=== PATIENT | male | born 1985 | race African-American/Black ===

== ENCOUNTER 2019-04-15 13:56 | Emergency (ER) | payer OTHER ==
[2019-04-15] MEDS ORDERED: Acetaminophen 500 MG TAB ONE (14:50)
[2019-04-15 15:06] LABS: Anion Gap 11 mmol/L (10-20); BUN (Urea Nitrogen) 12 mg/dL (8.9-20.6); Calc. Creatinine Clearance 0 mL/min (70-130); Calcium 9.2 mg/dL (7.8-10.44); Carbon Dioxide 26 mmol/L (22-29); Chloride 108 mmol/L (98-107); Estimated GFR-MDRD Greater than 90; Glucose 83 mg/dL (70-105); Potassium 3.7 mmol/L (3.5-5.1); Sodium 141 mmol/L (136-145)
--- NOTE | 2019-04-19 11:02 | EKG ---
Test Reason : Blood Pressure : / mmHG Vent. Rate : 065 BPM Atrial Rate : 065 BPM P-R Int : 154 ms QRS Dur : 088 ms QT Int : 388 ms P-R-T Axes : 000 151 161 degrees QTc Int : 403 ms Normal sinus rhythm Right axis deviation Nonspecific ST and T wave abnormality Abnormal ECG Confirmed by ANAND MEDELLIN ([id number]), video editor JAIDA CURTIS ([id number]) on 04/19/2019 11:01:33 AM Referred By: Confirmed By:ANAND MEDELLIN
== END 2019-04-15 16:11 | disposition home or self-care (01) ==
LOC: ERS 13:56
DX: G40.909 Epilepsy, unspecified, not intractable, without status epilepticus (principal); E86.0 Dehydration; F41.9 Anxiety disorder, unspecified; F31.9 Bipolar disorder, unspecified; Z79.899 Other long term (current) drug therapy
CPT/HCPCS: 36415; 80048; 93005; 96360

== ENCOUNTER 2020-02-19 10:50 | Emergency (ER) | payer OTHER | END 2020-02-19 11:26 | disposition home or self-care (01) | LOC: ERS 10:50 | DX: M79.89 Other specified soft tissue disorders (principal); F41.9 Anxiety disorder, unspecified; F31.9 Bipolar disorder, unspecified; G40.909 Epilepsy, unspecified, not intractable, without status epilepticus | CPT/HCPCS: 99283 ==

== ENCOUNTER 2021-09-30 14:19 | Inpatient (IN) | payer OTHER ==
[~2021-09-30 14:19] MED LIST: ISOVUE-370 76%-LOCM 1 ML ONE
[2021-09-30 14:40] LABS: #Basophils 0.1 thou/uL (0.0-0.2); #Eosinphils 0.1 thou/uL (0.0-0.7); #Lymphocytes 3.4 thou/uL (1.20-3.40); #Monocytes 0.7 thou/uL (0.11-0.59); %Basophils 0.8 % (0.0-1.0); %Eosinophils 1.2 % (0.0-10.0); %Lymphocytes 36.2 % (21.0-51.0); %Monocytes 7.8 % (0.0-10.0); %Neutrophils 53.9 % (42.0-75.0); Hemoglobin 13.8 g/dL (14.0-18.0); Mean Corpuscular HGB CONC 34.1 g/dL (32.0-36.0); Mean Corpuscular Hemoglobin 32.6 pg (27.0-31.0); Mean Corpuscular Volume 95.4 fL (78.0-98.0); Mean Platelet Volume 8.1 fL (7.4-10.4); Platelet Count 229 thou/uL (130-400); RBC Distribution Width 10.9 % (11.5-14.5); Red Blood Cell (RBC) Count 4.24 mill/uL (4.70-6.10); White Blood Cell (WBC) Count 9.3 thou/uL (4.8-10.8)
[2021-09-30] MEDS ORDERED: Fentanyl 100 MCG/2 ML VIAL ONE ×2 (14:41→16:42)
[2021-09-30 15:08] LABS: Acetaminophen Less than 6.0 mcg/mL (10.0-30.0); Alcohol Less than 10 mg/dL (Less than 10); Salicylate Less than 8.0 mg/dL (15.0-30.0)
[2021-09-30] MEDS ORDERED: TETANUS AND DIPHTHERIA TOX/PF 0.5 ML DISP.SYRIN IM ONE (15:10)
[2021-09-30] MEDS ORDERED: Ondansetron PF 4 MG/2 ML Vial IVP PRN (15:10)
[2021-09-30] MEDS ORDERED: Promethazine HCl 25 MG/ML VIAL IM PRN (15:10)
[2021-09-30] MEDS ORDERED: hydrALAZINE 20 MG/ML VIAL SLOW IVP PRN (15:10)
[2021-09-30 15:11] LABS: ALT (SGPT) 33 U/L (8-55); AST (SGOT) 30 U/L (5-34); Albumin 4.1 g/dL (3.5-5.0); Alkaline Phosphatase 56 U/L (40-110); Anion Gap 13 mmol/L (10-20); BUN (Urea Nitrogen) 12 mg/dL (8.9-20.6); Bilirubin, Total 0.4 mg/dL (0.2-1.2); Calc. Creatinine Clearance 0 mL/min (70-130); Calcium 9.4 mg/dL (7.8-10.44); Carbon Dioxide 24 mmol/L (22-29); Chloride 106 mmol/L (98-107); Globulin 3.5 g/dL (2.4-3.5); Glucose 117 mg/dL (70-105); Potassium 3.7 mmol/L (3.5-5.1); Protein, Total 7.6 g/dL (6.0-8.3); Sodium 139 mmol/L (136-145)
[2021-09-30] MEDS ORDERED: Cyclobenzaprine 10 MG TAB PO PRN (15:13)
[2021-09-30] MEDS ORDERED: Morphine 4 MG/ML VIAL ONE (16:00)
[2021-09-30] MEDS ORDERED: levETIRAcetam in NS 1,000 MG in Premix Bag 1 BAG IVPB SCH (16:15)
[2021-09-30] MEDS ORDERED: levETIRAcetam in NS 100 ML ONE (16:16)
[2021-09-30] MEDS ORDERED: Fentanyl 250 MCG/5 ML VIAL ONE (16:32)
[2021-09-30 16:47] LABS: Amphetamine Not Detected (NotDetected); Barbiturates Screen Not Detected (NotDetected); Benzodiazepine Screen Not Detected (NotDetected); Cocaine Metabolite Screen Not Detected (NotDetected); Methadone Not Detected (NotDetected); Methamphetamine Not Detected (NotDetected); Opiate Screen Not Detected (NotDetected); Oxycodone Screen Not Detected (NotDetected); Phencyclidine (PCP) Not Detected (NotDetected); THC/Cannabinoid Screen Not Detected (NotDetected); Tricyclic Screen Not Detected (NotDetected)
[2021-09-30 17:00] LABS: SARS-CoV-2 NAA Rapid Test Not Detected (NotDetected)
[2021-09-30] MEDS ORDERED: ceFAZolin 2 GM/DEX 5% 100 ML BAG ONE (17:07)
[2021-09-30] MEDS ORDERED: Ondansetron PF 4 MG/2 ML Vial ONE (17:10)
[2021-09-30] MEDS ORDERED: Lidocaine 1% PF 5 ML VIAL ONE (17:10)
[2021-09-30] MEDS ORDERED: Dexamethasone 20 MG/5 ML VIAL ONE (17:10)
[2021-09-30] MEDS ORDERED: Ketorolac Tromethamine 30 MG/ML VIAL ONE (17:10)
[2021-09-30] MEDS ORDERED: PROPOFOL 200 MG/20 ML VIAL ONE (17:10)
[2021-09-30] MEDS ORDERED: Succinylcholine 200 MG/10 ml SYRINGE FS ONE (17:10)
[2021-09-30] MEDS ORDERED: Rocuronium Bromide 10 MG/ML (10ML VIAL) ONE (17:10)
[2021-09-30] MEDS ORDERED: Glycopyrrolate 0.2 MG/ML 5 ML SYRINGE ONE (17:10)
[2021-09-30] MEDS ORDERED: Ibuprofen 200 MG TAB PO PRN (17:32)
[2021-09-30] MEDS ORDERED: PACU-Morphine 4MG/ML VIAL SLOW IVP PRN (18:42)
[2021-09-30] MEDS ORDERED: HYDROmorphone 2 MG/ML VIAL SLOW IVP PRN (18:42)
[2021-09-30] MEDS ORDERED: Morphine Sulfate 2 MG/ML SYRINGE SLOW IVP PRN (18:42)
[2021-09-30] MEDS ORDERED: Ondansetron HCl/PF 4 MG/2 ML Vial IVP PRN (18:42)
[2021-09-30] MEDS: levETIRAcetam 500 MG TAB PO SCH (21:15)
[2021-09-30] MEDS: Acetaminophen 325 MG TAB PO SCH ×2 (21:17→23:07)
[2021-09-30] MEDS: Acetaminophen/Codeine 30-300mg Tablet PO SCH ×2 (21:21→23:06)
[2021-09-30] MEDS: Famotidine/PF 20 mg/2ml Vial SLOW IVP SCH (21:22)
[2021-09-30] MEDS: Senokot S 8.6-50 MG TAB PO SCH (21:30)
[2021-09-30] MEDS: ceFAZolin Sodium/D5W 2 GM in Premix Bag 1 BAG IVPB SCH (21:59)
[2021-10-01] MEDS: Morphine 4 MG/ML VIAL SLOW IVP PRN ×2 (01:10→07:42)
[2021-10-01] MEDS: ceFAZolin Sodium/D5W 2 GM in Premix Bag 1 BAG IVPB SCH ×2 (05:52→15:07)
[2021-10-01] MEDS: Acetaminophen 325 MG TAB PO SCH ×2 (05:53→11:41)
[2021-10-01] MEDS: Acetaminophen/Codeine 30-300mg Tablet PO SCH ×2 (05:54→11:40)
[2021-10-01 06:08] LABS: #Lymphocytes 1.2 thou/uL (1.20-3.40); #Monocytes 0.8 thou/uL (0.11-0.59); #Neutrophils 10.6 thou/uL (1.40-6.50); %Basophils 0.1 % (0.0-1.0); %Eosinophils 0.1 % (0.0-10.0); %Lymphocytes 9.4 % (21.0-51.0); %Neutrophils 84.3 % (42.0-75.0); Hemoglobin 12.2 g/dL (14.0-18.0); Mean Corpuscular HGB CONC 35.4 g/dL (32.0-36.0); Mean Corpuscular Hemoglobin 33.3 pg (27.0-31.0); Mean Corpuscular Volume 94.1 fL (78.0-98.0); Mean Platelet Volume 7.9 fL (7.4-10.4); Platelet Count 217 thou/uL (130-400); RBC Distribution Width 10.8 % (11.5-14.5); Red Blood Cell (RBC) Count 3.66 mill/uL (4.70-6.10); White Blood Cell (WBC) Count 12.5 thou/uL (4.8-10.8)
[2021-10-01 06:17] LABS: INR-International Normal Ratio 1.1; PTT 26.5 sec (22.9-36.1); Prothrombin Time 14.4 sec (12.0-14.7)
[2021-10-01 06:37] LABS: Anion Gap 11 mmol/L (10-20); BUN (Urea Nitrogen) 10 mg/dL (8.9-20.6); Calc. Creatinine Clearance 0 mL/min (70-130); Calcium 8.8 mg/dL (7.8-10.44); Carbon Dioxide 24 mmol/L (22-29); Chloride 104 mmol/L (98-107); Glucose 142 mg/dL (70-105); Magnesium 1.5 mg/dL (1.6-2.6); Sodium 135 mmol/L (136-145)
[2021-10-01 06:44] LABS: Phosphorus 1.6 mg/dL (2.3-4.7)
[2021-10-01] MEDS ORDERED: Sodium Phosphate 30 MMOL in Sodium Chloride 0.9% 250 ML 250 ML IVPB ONE (07:30)
[2021-10-01] MEDS: Famotidine/PF 20 mg/2ml Vial SLOW IVP SCH (07:42)
[2021-10-01] MEDS: Senokot S 8.6-50 MG TAB PO SCH (07:46)
[2021-10-01] MEDS: levETIRAcetam 500 MG TAB PO SCH (07:48)
[2021-10-01] MEDS ORDERED: Polyethylene Glycol 3350 17 GM Packet PO SCH (09:00)
[2021-10-01 12:16] VITALS: BP 134/84; TEMP 98
[2021-10-01] MEDS ORDERED: levETIRAcetam 500 MG TAB PO SCH (21:00)
[2021-10-02] MEDS ORDERED: Enoxaparin Sodium 40 MG/0.4 ML SYRINGE SC SCH (09:00)
== END 2021-10-01 15:45 | disposition home or self-care (01) | DRG 481 ==
LOC: ERS 14:19 → SDC 17:06 → SURG B 18:27
PROVIDERS: ADMIT Orthopaedic Surgery; ATTEND Orthopaedic Surgery
PROC: 0QS706Z Reposition Left Upper Femur with Intramedullary Internal Fixation Device, Open Approach (ICD-10-PCS; principal; 2021-09-30)
DX: S72.22XA Displaced subtrochanteric fracture of left femur, initial encounter for closed fracture (principal); S12.600A Unspecified displaced fracture of seventh cervical vertebra, initial encounter for closed fracture; Z20.822 Contact with and (suspected) exposure to COVID-19; G40.909 Epilepsy, unspecified, not intractable, without status epilepticus; F95.2 Tourette's disorder; Z79.899 Other long term (current) drug therapy; Z88.8 Allergy status to other drugs, medicaments and biological substances; V49.9XXA Car occupant (driver) (passenger) injured in unspecified traffic accident, initial encounter
CPT/HCPCS: 36415; 70450; 71045; 71260; 72125; 72170; 74177; 76000; 80048; 80053; 80177; 80306; 80307; 83605; 83735; 84100; 84146; 85025; 85610; 85730; 96374; 96375; 96376; C1713; G0390; J1100; J1885; J1953; J2270; J2405; J2704; J3010; J3475; J3490; J7050; Q9966; S0028; U0002

== ENCOUNTER 2022-02-23 13:05 | Outpatient (CLI) | payer OTHER | END 2022-02-23 13:06 | disposition home or self-care (01) | LOC: BICMRI 13:05 | PROVIDERS: ATTEND Physician Assistant Surgical | DX: S72.322D Displaced transverse fracture of shaft of left femur, subsequent encounter for closed fracture with routine healing (principal); M23.8X2 Other internal derangements of left knee ==

== ENCOUNTER 2022-09-26 17:30 | Outpatient (CLI) | payer OTHER | END 2022-09-26 17:31 | disposition home or self-care (01) | LOC: SLEEPLAB 17:30 | PROVIDERS: ATTEND Internal Medicine | DX: G47.33 Obstructive sleep apnea (adult) (pediatric) (principal); F41.9 Anxiety disorder, unspecified; R53.83 Other fatigue; R06.83 Snoring; G47.00 Insomnia, unspecified; G47.10 Hypersomnia, unspecified | CPT/HCPCS: 95800 ==

== ENCOUNTER 2022-11-07 11:33 | Emergency (ER) | payer OTHER | END 2022-11-07 13:08 | disposition home or self-care (01) | LOC: ERS 11:33 | DX: J02.9 Acute pharyngitis, unspecified (principal) | CPT/HCPCS: 99283 ==

== ENCOUNTER 2023-01-21 20:00 | Emergency (ER) | payer OTHER | END 2023-01-21 21:35 | disposition home or self-care (01) | LOC: ERS 20:00 | DX: S70.12XA Contusion of left thigh, initial encounter (principal); V89.2XXA Person injured in unspecified motor-vehicle accident, traffic, initial encounter ==

== ENCOUNTER 2023-09-13 13:45 | Emergency (ER) | payer OTHER ==
[2023-09-13] MEDS ORDERED: Ketorolac Tromethamine 30 MG/ML VIAL ONE (14:31)
[2023-09-13] MEDS ORDERED: Diazepam 5 MG TAB ONE (14:37)
== END 2023-09-13 14:45 | disposition home or self-care (01) ==
LOC: ERS 13:45
DX: S39.012A Strain of muscle, fascia and tendon of lower back, initial encounter (principal); G40.909 Epilepsy, unspecified, not intractable, without status epilepticus; X50.0XXA Overexertion from strenuous movement or load, initial encounter; Y99.0 Civilian activity done for income or pay; Z79.899 Other long term (current) drug therapy
CPT/HCPCS: 96372; 99283; J1885